=== PATIENT | female | born 1970 | race Caucasian/White ===

== ENCOUNTER → 2018-02-01 | Outpatient (CLI) | payer BC ==
--- NOTE | 2018-02-01 20:03 | MR ---
EXAMINATION TYPE: MR shoulder RT wo con DATE OF EXAM: 02/01/2018 COMPARISON: Outside x-ray dated 11/27/2017 HISTORY: Right Shoulder and Arm pain x1-2 years TECHNIQUE: Multiplanar, multisequence imaging of the right shoulder is performed without contrast. FINDINGS: Rotator Cuff: There is diffuse abnormal signal throughout the distal 2.5 cm of the infraspinatus tend on. Findings compatible with a partial through thickness tear measuring a diameter of 10 mm. No retra ction. Supraspinatus tendon demonstrates thinning distally near the insertion. Partial through thickness tea r involving the conjoined portion of the tendon without evidence of retraction. Subscapularis tendon intact. Acromioclavicular Joint: Marked arthropathy of the AC joint resulting in impingement of the rotator c uff. Glenohumeral Joint: Joint spaces preserved. There is no sizable joint effusion. Glenohumeral ligament s intact. Labrum: There is truncation and abnormal signal involving the anterior superior labrum compatible wit h tear Biceps Tendon: The long head of biceps is in normal location within bicipital groove. Bone marrow signal: No focal abnormal marrow signal is appreciated. IMPRESSION: 1. Impingement secondary to arthropathy of the AC joint resulting diffuse tendinopathy of the infrasp inatus tendon and to a lesser extent the supraspinatus tendon. There is a partial through thickness 1 cm tear of the conjoined portion of the supraspinatus and infraspinatus tendons at the insertion wit h no evidence of retraction. 2. Findings suspicious for anterior superior labral tear.
== END | disposition home or self-care (01) ==
LOC: RADMRIMAIN 17:45
PROVIDERS: ATTEND Orthopaedic Surgery
DX: M75.41 Impingement syndrome of right shoulder (principal); M75.111 Incomplete rotator cuff tear or rupture of right shoulder, not specified as traumatic; M12.811 Other specific arthropathies, not elsewhere classified, right shoulder; M75.81 Other shoulder lesions, right shoulder; M79.89 Other specified soft tissue disorders

== ENCOUNTER 2023-01-30 08:33 | Day surgery (SDC) | payer BC ==
[2023-01-28 14:12] VITALS: BMI 23.7
[~2023-01-30 08:33] MED LIST: LACTATED RINGERS 1,000 ML IV SCH; LIDOCAINE 1% (10MG/ML) FOR IV START INTRADERMA PRN
[2023-01-30 09:15] LABS: Glucose,Whole Blood 127 mg/dL (70-110)
[2023-01-30] MEDS ORDERED: ONDANSETRON 4 MG/2 ML VIAL ONE (09:17)
[2023-01-30] MEDS ORDERED: ONDANSETRON 4 MG/2 ML VIAL IVP ONE (09:18)
[2023-01-30 09:27] VITALS: TEMP 98.8
[2023-01-30] MEDS ORDERED: PROPOFOL 10 MG/ML 20 ML VIAL IV ONE (09:32)
[2023-01-30] MEDS ORDERED: LIDOCAINE 1% INJ 10MG/ML (20 ML MDV) ONE (09:32)
--- NOTE | 2023-01-30 09:53 | P.PCN ---
Date of Procedure: 01/30/23 Procedure(s) Performed: BRIEF HISTORY: Patient is a 52-year-old pleasant white female scheduled for an elective colonoscopy as a part of screening for colon cancer. PROCEDURE PERFORMED: Colonoscopy. PREOPERATIVE DIAGNOSIS: Screening for colon cancer. IV sedation per Anesthesia. PROCEDURE: After informed consent was obtained, the patient, was brought into the endoscopy unit. IV sedation was administered by Anesthesia under continuous monitoring. Digital rectal examination was normal. Initially the Olympus CF-160 flexible video colonoscope was then inserted in the rectum, gradually advanced into the cecum without any difficulty. Careful examination was performed as the scope was gradually being withdrawn. Ileocecal valve and the appendiceal orifice were visualized and appeared normal. Prep was excellent. Mucosa of the cecum, ascending colon, transverse colon, descending colon, sigmoid colon, and rectum appeared normal. Retroflexion was performed in the rectum and no lesions were seen. The patient tolerated the procedure well. IMPRESSION: Normal-appearing colon from rectum to cecum with no evidence of colorectal neoplasia . RECOMMENDATIONS: Findings of this examination were discussed with the patient is well as her family.. She was advised to have a repeat screening colonoscopy in 10 years.
[2023-01-30 10:49] VITALS: BP 110/74; PULSE 75; RESP 18
== END 2023-01-30 11:06 | disposition home or self-care (01) ==
LOC: ORWHC2ENDO 08:33
PROVIDERS: ATTEND Internal Medicine Gastroenterology
DX: Z12.11 Encounter for screening for malignant neoplasm of colon (principal); I10 Essential (primary) hypertension; E78.5 Hyperlipidemia, unspecified; J45.909 Unspecified asthma, uncomplicated; E07.9 Disorder of thyroid, unspecified; E11.9 Type 2 diabetes mellitus without complications; K21.9 Gastro-esophageal reflux disease without esophagitis; Z79.84 Long term (current) use of oral hypoglycemic drugs; Z79.85 Long-term (current) use of injectable non-insulin antidiabetic drugs; Z79.51 Long term (current) use of inhaled steroids; Z79.890 Hormone replacement therapy; Z79.899 Other long term (current) drug therapy; Z87.891 Personal history of nicotine dependence; Z88.2 Allergy status to sulfonamides; Z90.710 Acquired absence of both cervix and uterus
CPT/HCPCS: 45378; J2405; J2001; J2704